=== PATIENT | female | born 1995 | race Caucasian/White ===

== ENCOUNTER 2020-09-06 20:46 | Observation (INO) ==
[2020-09-06] MEDS ORDERED: MoRPHine SULFATE 4 MG/ML 1 ML CARP\\VIAL IV STA (21:23)
[2020-09-06] MEDS ORDERED: ONDANSETRON INJ 2 MG/ML 2 ML VIAL IV STA (21:23)
[2020-09-06] MEDS ORDERED: SODIUM CHLORIDE 0.9% 1000ML 1,000 ML IV ONE (21:23)
[2020-09-06 22:00] LABS: Basophils # (auto) 0.03 K/uL (0-0.2); Basophils % (auto) 0.2 %; Eosinophils % (auto) 0.8 %; Hematocrit (blood only) 38.1 % (37-47); Hemoglobin 12.4 g/dL (12.0-16.0); Immature Granulocytes # (auto) 0.04 K/uL (0.00-0.02); Immature Granulocytes % (auto) 0.3 %; Lymphocytes # (auto) 2.56 K/uL (1.2-3.4); Lymphocytes % (auto) 20.2 %; Mean Corpuscular Hemoglobin 29.3 pg (25-34); Mean Corpuscular Hgb Conc 32.5 g/dL (32-36); Mean Corpuscular Volume 90.1 fL (80-100); Monocytes # (auto) 0.92 K/uL (0.11-0.59); Monocytes % (auto) 7.3 %; Neutrophils # (auto) 9.03 K/uL (1.4-6.5); Neutrophils % (auto) 71.2 %; Platelet Count 227 K/uL (130-400); Red Blood Count 4.23 M/uL (4.2-5.4); White Blood Count 12.68 K/uL (4.8-10.8)
[2020-09-06 22:01] LABS: Appearance Urine Clear (Clear); Bilirubin Urine Negative (Negative); Blood Urine Negative (Negative); Color Urine Yellow; Glucose Urine UA Negative (Negative); Ketones Urine Negative (Negative); Leukocyte Esterase Urine Negative (Negative); Nitrite Urine Negative (Negative); Protein Urine Negative (Negative); Specific Gravity Urine 1.021 (1.000-1.030); Urobilinogen Urine Negative (Negative); pH Urine 6.5 (4.5-7.5)
[2020-09-06 22:02] LABS: Pregnancy Test, Urine Negative (Negative)
[2020-09-06 22:06] LABS: Albumin Level 3.6 gm/dl (3.4-5.0); BUN Creatinine Ratio 12.4 (10-20); Creatinine Clr Calc Pharmacy 103.3 ml/min; Est GFR (African American) 98.3; Est GFR (Non-African American) 84.8; Potassium 3.5 mmol/L (3.5-5.1)
[2020-09-06 22:09] LABS: Albumin Globulin Ratio 0.9 (0.9-2); Bilirubin,Total 0.6 mg/dl (0.2-1); Total Protein 7.6 gm/dl (6.4-8.2)
[2020-09-06] MEDS ORDERED: IOVERSOL 100ml IV ONE (22:39)
[2020-09-06] MEDS ORDERED: cefOXitin 2,000 MG/60 ML BAG IV STA ×2 (23:00→23:31)
--- NOTE | 2020-09-06 23:44 | Emergency Department Note ---
Impression & Plan Acute appendicitis, Abdominal pain ED Provider Note NAME: SHARRON SANCHEZ AGE: 25 SEX: F : 1995 ARRIVES VIA: Walk-In INFORMANT: Patient, ED PROVIDER(S): Julio Delcid MD Chief Complaint: Abdominal pain HPI: Patient does present with abdominal pain that was more centralized and became migratory to the right lower quadrant. Patient describes it as sharp and nonradiating. It is worse with palpation. Patient states that this began earlier this afternoon. The patient did not take anything for prior and had one episode of nonbloody nonbilious emesis. Patient denies any prior history of abdominal surgeries. The patient has had some loose stools but no evidence of any blood. The patient denies any history of kidney stones and no blood in the urine. The patient denies any fevers, chills, chest pains or shortness of breath. The patient states that she has a roommate who recently had a procedure and they both had recent negative coronavirus test. ROS: See HPI for pertinent positives and negatives. A total of 10 systems were reviewed and otherwise negative. Past medical history: See below Surgical history: See below Social history: See below Physical Exam: GENERAL: Wearing a mask. NAD, non-toxic. EYE EXAM: Normal conjunctiva. PERRL, no anisocoria and EOM's grossly intact w/o pain. NECK: Supple, no nuchal rigidity, no adenopathy, non-tender. No signs of meningismus. LUNGS: Clear to auscultation. Normal chest wall mechanics. HEART: NSR, no MRG. ABDOMEN: Abdomen soft, right lower quadrant pain well localized without peritonitis, negative obturator, positive psoas, normo-active bowel sounds, no masses, no rebound or guarding. BACK: No CVA TTP. SKIN: No rashes and no bruising. UPPER EXTREMITIES: Upper extremities are grossly normal. LOWER EXTREMITIES: Grossly normal, no edema. NEURO EXAM: A&O x3, cranial nerves II-XII grossly intact, normal speech, moves all 4 extremities on command w/o issue. Differential diagnoses: Appendicitis, ovarian cyst, ovarian torsion, ectopic , TOA, PID, infections, diverticulitis, UTI, obstruction, mesenteric ischemia, aortic pathology, inflammatory bowel disease, renal colic, PUD, pancreatitis, biliary pathology, hernia, volvulus, constipation, as well as other pathologies. Course: Patient was seen and evaluated the bedside. Full history physical exam was performed. EKG: None Imaging Studies: Radiology results as stated below per my review in the radiologist's interpretation: CT abdomen pelvis with IV contrast Impression: Acute appendicitis. Cardiac monitoring: An order was placed for continuous cardiac monitoring. The monitor shows a rate of 76 with sinus rhythm. MDM: Patient did present with concern for abdominal pain. Blood work was obtained along with a urinalysis test CT of the abdomen pelvis and the patient was treated symptomatically with IV fluids pain and nausea medication. Patient has a mild white count of 12.6 with a normal H&H platelet count. Kidney function is unremarkable with normal LFTs and lipase. Urinalysis is negative for blood or infection with a negative test. Rapid Covid test is negative. I did speak with the on-call general surgery Brad Hu PA-C and this was staffed with Dr. Doyle of general surgery. Patient was admitted to the general service surgery service and was pending operative treatment tomorrow morning. Patient was ordered Mefoxin. Patient did have improvement in her pain and has had no further vomiting. Patient last ate in Serbian muffin around 6 or 7 PM Past Med/Surg History Medical History No pertinent past medical history Surgical History H/O arthroscopic knee surgery Social History Smoking Status: Never smoker Preferred Language: Serbian Feels Safe at Home: Yes Allergies Allergies Allergy/AdvReac Type Severity Reaction Status Date / Time No Known Allergies Unverified 09/06/20 23:18 Home Meds Home Medications Medication Instructions Recorded Confirmed norgestimate-ethinyl estradiol 1 tab PO DAILY 09/06/20 09/06/20 [Kst-[id number]] sertraline 25 mg PO DAILY 09/06/20 09/06/20 Results & Data (ED) Vital Signs Vital Signs - 24 hr 09/06/20 20:49 09/06/20 22:10 09/06/20 23:00 Temperature 37.0 C Temperature Source Oral Pulse Rate 88 Pulse Rate [Left Finger] 76 Pulse Rhythm Regular Pulse Strength Normal Respiratory Rate 20 18 Respiratory Effort / Characteristics Non-Labored Spontaneous Respiratory Depth Normal Blood Pressure 148/97 H Blood Pressure [Right Arm] 140/96 Blood Pressure Mean 114 Blood Pressure Mean [Right Arm] 110 Blood Pressure Position Sitting Pulse Oximetry 98 98 98 Oxygen Delivery Method Room Air Room Air Sepsis Recent Fever Within 48 Hours No Sepsis New/Unexplained Change in Mental Status N/A Sepsis Action Taken by Nursing No Action Required Home Medications Current Medication List: was personally reviewed by me Laboratory Data Attestation: I reviewed the patient's lab results. Result diagrams: 09/06/20 21:37 09/06/20 21:37 Lab Results 09/06/20 09/06/20 09/06/20 Range/Units 21:37 21:37 21:37 WBC 12.68 H (4.8-10.8) K/uL RBC 4.23 (4.2-5.4) M/uL Hgb 12.4 (12.0-16.0) g/dL Hct 38.1 (37-47) % MCV 90.1 (80-100) fL MCH 29.3 (25-34) pg MCHC 32.5 (32-36) g/dL Plt Count 227 (130-400) K/uL Immature Gran % (Auto) 0.3 % Neut % (Auto) 71.2 % Lymph % (Auto) 20.2 % [place] % (Auto) 7.3 % Eos % (Auto) 0.8 % Baso % (Auto) 0.2 % Neut # (Auto) 9.03 H (1.4-6.5) K/uL Lymph # (Auto) 2.56 (1.2-3.4) K/uL [place] # (Auto) 0.92 H (0.11-0.59) K/uL Eos # (Auto) 0.10 (0-0.5) K/uL Baso # (Auto) 0.03 (0-0.2) K/uL Immature Gran # (Auto) 0.04 H (0.00-0.02) K/uL Sodium 141 (136-145) mmol/L Potassium 3.5 (3.5-5.1) mmol/L Chloride 108 H (98-107) mmol/L Carbon Dioxide 27 (21-32) mmol/L Anion Gap 6.0 (3-11) BUN 12 (7-18) mg/dl Creatinine 0.93 (0.6-1.2) mg/dl Est Cr Clr Drug Dosing 103.3 ml/min Est GFR ( Amer) 98.3 Est GFR (Non-Af Amer) 84.8 BUN/Creatinine Ratio 12.4 (10-20) Glucose 95 (70-99) mg/dl Calcium 9.0 (8.5-10.1) mg/dl Total Bilirubin 0.6 (0.2-1) mg/dl AST 12 L (15-37) U/L ALT 15 (12-78) U/L Alkaline Phosphatase 49 (45-117) U/L Total Protein 7.6 (6.4-8.2) gm/dl Albumin 3.6 (3.4-5.0) gm/dl Globulin 4.0 (2.5-4.0) gm/dl Albumin/Globulin Ratio 0.9 (0.9-2) Lipase 57 L (73-393) U/L Urine Color Yellow Urine Appearance Clear (Clear) Urine pH 6.5 (4.5-7.5) Ur Specific [place] 1.021 (1.000-1.030) Urine Protein Negative (Negative) Urine Glucose (UA) Negative (Negative) Urine Ketones Negative (Negative) Urine Blood Negative (Negative) Urine Nitrite Negative (Negative) Urine Bilirubin Negative (Negative) Urine Urobilinogen Negative (Negative) Ur Leukocyte Esterase Negative (Negative) Urine Test (Negative) 09/06/20 Range/Units 21:37 WBC (4.8-10.8) K/uL RBC (4.2-5.4) M/uL Hgb (12.0-16.0) g/dL Hct (37-47) % MCV (80-100) fL MCH (25-34) pg MCHC (32-36) g/dL Plt Count (130-400) K/uL Immature Gran % (Auto) % Neut % (Auto) % Lymph % (Auto) % [place] % (Auto) % Eos % (Auto) % Baso % (Auto) % Neut # (Auto) (1.4-6.5) K/uL Lymph # (Auto) (1.2-3.4) K/uL [place] # (Auto) (0.11-0.59) K/uL Eos # (Auto) (0-0.5) K/uL Baso # (Auto) (0-0.2) K/uL Immature Gran # (Auto) (0.00-0.02) K/uL Sodium (136-145) mmol/L Potassium (3.5-5.1) mmol/L Chloride (98-107) mmol/L Carbon Dioxide (21-32) mmol/L Anion Gap (3-11) BUN (7-18) mg/dl Creatinine (0.6-1.2) mg/dl Est Cr Clr Drug Dosing ml/min Est GFR ( Amer) Est GFR (Non-Af Amer) BUN/Creatinine Ratio (10-20) Glucose (70-99) mg/dl Calcium (8.5-10.1) mg/dl Total Bilirubin (0.2-1) mg/dl AST (15-37) U/L ALT (12-78) U/L Alkaline Phosphatase (45-117) U/L Total Protein (6.4-8.2) gm/dl Albumin (3.4-5.0) gm/dl Globulin (2.5-4.0) gm/dl Albumin/Globulin Ratio (0.9-2) Lipase (73-393) U/L Urine Color Urine Appearance (Clear) Urine pH (4.5-7.5) Ur Specific [place] (1.000-1.030) Urine Protein (Negative) Urine Glucose (UA) (Negative) Urine Ketones (Negative) Urine Blood (Negative) Urine Nitrite (Negative) Urine Bilirubin (Negative) Urine Urobilinogen (Negative) Ur Leukocyte Esterase (Negative) Urine Test Negative (Negative) Administered Medications Discontinued Medications Sodium Chloride (Nss 1000ml) 1,000 mls @ 999 mls/hr IV .Q1H1M ONE Stop: 09/06/20 22:23 Last Admin: 09/06/20 21:41 Dose: 999 mls/hr Documented by: [id number] Cefoxitin Sodium (Mefoxin) 2,000 mg in 60 mls @ 100 mls/hr IV NOW STA Stop: 09/06/20 23:35 Last Admin: 09/06/20 23:39 Dose: 100 mls/hr Documented by: [id number] Ioversol (Ioversol 100ml) 100 ml IV ONCE ONE Stop: 09/06/20 22:40 Last Admin: 09/06/20 22:40 Dose: 89 ml Documented by: [id number] Morphine Sulfate (Morphine Sulfate 4 Mg/Ml 1 Ml Carp\Vial) 4 mg IV NOW STA Stop: 09/06/20 21:24 Last Admin: 09/06/20 21:41 Dose: 4 mg Documented by: [id number] Ondansetron HCl (Ondansetron Inj 2 Mg/Ml 2 Ml Vial) 4 mg IV NOW STA Stop: 09/06/20 21:24 Last Admin: 09/06/20 21:41 Dose: 4 mg Documented by: [id number] Discharge Plan Visit Data Chief Complaint: Abdominal Pain Stated Complaint: flank pain, nausea, vomit ED Provider: Julio Delcid Discharge Problem: Acute appendicitis, Abdominal pain Forms Stand Alone Forms: [facility] Prescriptions Prescriptions: No Action sertraline 25 mg tablet 25 mg PO DAILY RF: 0 norgestimate-ethinyl estradiol [[id number]-[id number]] 0.18/0.215/0.25 mg-25 mcg tablet 1 tab PO DAILY RF: 0 Discharge Problem: Acute appendicitis Qualifiers: Acute appendicitis type: with localized peritonitis Appendicitis gangrene presence: without gangrene Appendicitis perforation presence: without perforation Appendicitis abscess presence: without abscess Qualified Code(s): K35.30 - Acute appendicitis with localized peritonitis, without perforation or gangrene Abdominal pain Qualifiers: Abdominal location: right lower quadrant Qualified Code(s): R10.31 - Right lower quadrant pain
--- NOTE | 2020-09-06 23:49 | History & Physical Report ---
Date of Service September 06, 2020 Assessment & Plan (1) Acute appendicitis: -admit to hospital -plan on appendectomy in the morning; -abx. (mefoxin) have been given in the ED--will continue -provide analgesics and anti-emetics -keep npo -hydrate with IVF -COVID-19 test is pending -consent for surgery obtained; procedure discussed with pt. History of Present Illness Chief Complaint: Abdominal Pain Primary Care Provider: Richard Rivera MD 25 year old developed periumbilical pain that shifted to RLQ earlier this evening. The pain is non-radiating and worse with movement. Improvement noted with lying still as well as morphine that was given in the ED. She denies fever, but had N/V. Her most recent meal was about 1800 today. In the ED, WBC was 12K and CT scan showed acute appendicitis. She was afebrile. Urine test was (-). She had a COVID test 1 week ago that was (-). She was in no distress at the time of my exam and pain was well controlled. Allergies Allergy/AdvReac Type Severity Reaction Status Date / Time No Known Allergies Unverified 09/06/20 23:18 Home Medications Medication Instructions Recorded Confirmed Type norgestimate-ethinyl estradiol 1 tab PO DAILY 09/06/20 09/06/20 History [Oil-Bn-Jbemdt] sertraline 25 mg PO DAILY 09/06/20 09/06/20 History Past Med/Surg History Medical History No pertinent past medical history Surgical History H/O arthroscopic knee surgery Social History Smoking Status: Never smoker Preferred Language: Occitan Feels Safe at Home: Yes Review of Systems Constitutional: no fever and no sweats Eyes: no diplopia Ear, Nose, Mouth, Throat: no ear pain Respiratory: no cough and no dyspnea Cardiovascular: no chest pain Gastrointestinal: + abdominal pain, + nausea and + vomiting Genitourinary: no dysuria Musculoskeletal: no back pain Integumentary: no rash Neurologic: no localized weakness Physical Exam Constitutional: well developed and well nourished; no acute distress Eyes: no conjunctival abnormality ENMT: Ears: no hearing impairment Neck: trachea midline, no thyromegaly Respiratory: normal respiratory effort, lungs clear to auscultation Cardiovascular: Rate/Rhythm: regular rate and regular rhythm Gastrointestinal (Abdomen): soft with (+) BS, pain in RLQ with palpation at McBurney's point; Rovsing sign (+), minimal rebound tenderness Musculoskeletal: no calf pain Skin: no rashes, warm and dry Neurologic: moves all extremities Results & Data Results & Data ([facility]) Vital Signs (Past 12 Hours) Vital Signs Temp Pulse Pulse Resp BP BP Pulse Ox 09/06/20 22:10 76 18 140/96 98 09/06/20 20:49 37.0 C 88 20 148/97 H 98 Code Status & VTE Plan VTE Prophylaxis Plan VTE Prophylaxis will be ordered: Yes PG Care Time/CCT Total # of Minutes Spent Total Time Spent with Patient: Total time spent is greater than 50% in coordination of care (as documented) at patient's floor/unit and/or counseling patient: Coding Level of Care Code 25441 OBS Care - Level 3 Diagnoses Acute appendicitis K35.80
[2020-09-07] MEDS ORDERED: MoRPHine SULFATE 2 MG/ML CARP IV PRN (01:56)
[2020-09-07] MEDS ORDERED: LACTATED RINGER'S 1,000 ML IV SCH ×2 (01:56→10:20)
[2020-09-07] MEDS ORDERED: ONDANSETRON INJ 2 MG/ML 2 ML VIAL IV PRN ×2 (01:56→08:12)
[2020-09-07] MEDS ORDERED: ACETAMINOPHEN 1,000 MG/100 ML VIAL IV PRN (01:56)
[2020-09-07] MEDS: cefOXitin 2,000 MG in DEXTROSE 5% 50 ML IV SCH ×2 (05:46→12:08)
[2020-09-07] MEDS ORDERED: MIDAZOLAM HCL 1 MG/ML 2ML VIAL ONE (07:25)
[2020-09-07] MEDS ORDERED: fentaNYL citrate 100 MCG/2 ML VIAL ONE (07:25)
--- NOTE | 2020-09-07 07:36 | History & Physical Bridge Note ---
Date of Service September 07, 2020 History & Physical Bridge Note I have examined the patient, reviewed the History & Physical and in the interval since the performance of the History & Physical I have noted the following changes of clinical significance: no changes noted as above. discussed findings options. discussed risks ( bleeding/infection/abcess/injury to nearby structures such as bowel/bladder/ureter etc... dvt/pe/mi/cva etc....discussed options. questions answered. will proceed with laparoscopic appendectomy/possible open.
--- NOTE | 2020-09-07 07:37 | CT Scan Report ---
ABDOMEN AND PELVIS CT WITH IV CONTRAST CT DOSE: 899.06 mGycm HISTORY: Acute right lower quadrant abdominal pain pain RLQ TECHNIQUE: Multiaxial CT images of the abdomen and pelvis were performed following the IV administrat ion of 89 cc of Optiray 320, A dose lowering technique was utilized adhering to the principles of [place] JUAN CARLOS. COMPARISON STUDY: None. FINDINGS: Mild subsegmental left lung base atelectasis. There is no pneumatosis or pneumoperitoneum. Imaged inf erior cardiac chambers are unremarkable. The spleen, pancreas, adrenal glands and gallbladder are unr emarkable. Liver is within normal limits. There is patency of the hepatic and portal veins. Kidneys and ureters are unremarkable. Mild urinary bladder wall thickening with partial distention. U terus and ovaries are unremarkable. Aorta and IVC are unremarkable. No adenopathy. Mild fecal retention. No bowel obstruction. Limited evaluation of the appendix without the use of ora l contrast. Nondilated fluid-filled loops of small bowel are noted within the central abdomen and pel vis with a few scattered air-fluid levels. There is a fluid-filled structure measuring 10 mm within t he abdominal right lower quadrant which demonstrates mild wall thickening and surrounding inflammator y stranding. This is suggestive of an inflamed appendix. No perforation or drainable fluid collection . Soft tissues are unremarkable. The bones appear intact. Transitional lumbosacral anatomy. IMPRESSION: 1. Limited exam without the use of enteric contrast. There is a tubular fluid-filled structure measur ing up to 10 mm within the abdominal right lower quadrant suggestive of an inflamed appendix. Trace a djacent inflammatory stranding is noted without evidence of perforation or drainable fluid collection . 2. No bowel obstruction or pneumoperitoneum. ACT 112: Negative or not required by law. The above report was generated using voice recognition software. It may contain grammatical, syntax o r spelling errors. Electronically signed by: Jhonathan Doss M.D. 09/07/2020 7:36 AM
[2020-09-07] MEDS ORDERED: INFLUENZA VIRUS QUAD VACCINE 0.5 ML SYR IM ONE (08:00)
[2020-09-07] MEDS ORDERED: INFLUENZA ADMINISTRATION CHARGE ONE (08:00)
--- NOTE | 2020-09-07 08:06 | Anesthesiology Consultation ---
Date of Service September 07, 2020 Assessment & Plan (1) Encounter for pre-operative examination: Chart Review Chart Review: Acceptable Risk for Surgery History Surgery Operation Date: 09/07/20 07:05 Proposed Procedures p Laparoscopic Appendectomy - Julian Doyle, Height/Weight Height: 5 ft 7 in Weight: 85.7 kg Allergies Allergy/AdvReac Type Severity Reaction Status Date / Time No Known Allergies Unverified 09/06/20 23:18 Medications Home Medications Medication Instructions Recorded Confirmed Last Taken norgestimate-ethinyl estradiol 1 tab PO DAILY 09/06/20 09/06/20 09/06/20 [Yri-Ii-Sykezg] sertraline 25 mg PO DAILY 09/06/20 09/06/20 09/06/20 Active Medications Generic Name Dose Route Start Last Admin Trade Name Marckq PRN Reason Stop Dose Admin Lactated Ringer's 1,000 mls @ 100 mls/hr 09/07/20 01:56 09/07/20 02:28 Lr IV 10/07/20 01:55 100 mls/hr .Q10H JOSELIN Administration Cefoxitin Sodium 2,000 mg/ 60 mls @ 100 mls/hr 09/07/20 06:00 09/07/20 06:22 Dextrose IV 09/17/20 05:59 Infused Q6H JOSELIN Infusion NPO Date Last Intake of Fluids: 09/06/20 Time Last Intake of Fluids: 19:00 Date Last Intake of Solids: 09/06/20 Time Last Intake of Solids: 19:00 Past Medical History Medical History No pertinent past medical history Past Surgical History Surgical History H/O arthroscopic knee surgery Social History Smoking Status: Never smoker Do You Dip or Chew Tobacco: No Hx Alcohol Use: Yes Alcohol type: wine alcohol intake frequency: holidays/special occasions only Hx Substance Use: No Physical Exam Vital Signs Last Vital Signs Temp 36.6 C 09/07/20 07:55 Pulse 72 09/07/20 07:55 Resp 16 09/07/20 07:55 BP 119/69 09/07/20 07:55 Pulse Ox 97 09/07/20 07:55 Testing Laboratory Results 09/06/20 21:37 09/06/20 21:37 Urine Color Yellow 09/06/20 21:37 Urine Appearance Clear (Clear) 09/06/20 21:37 Urine pH 6.5 (4.5-7.5) 09/06/20 21:37 Ur Specific [place] 1.021 (1.000-1.030) 09/06/20 21:37 Urine Protein Negative (Negative) 09/06/20 21:37 Urine Glucose (UA) Negative (Negative) 09/06/20 21:37 Urine Ketones Negative (Negative) 09/06/20 21:37 Urine Nitrite Negative (Negative) 09/06/20 21:37 Ur Leukocyte Esterase Negative (Negative) 09/06/20 21:37 Urine Test Negative (Negative) 09/06/20 21:37 09/06/20 21:37 Urine Test Negative
[2020-09-07] MEDS ORDERED: EPINEPHrine INJ 1 MG/ML AMP ONE (08:09)
[2020-09-07] MEDS ORDERED: BUPIVACAINE 0.5 % 5 MG/1 ML MPF 30ML VIAL ONE (08:10)
[2020-09-07] MEDS ORDERED: KETOROLAC 30 MG/ML VIAL IV PRN (08:12)
[2020-09-07] MEDS ORDERED: PROMETHAZINE HCL 6.25 MG in SODIUM CHLORIDE 0.9% 50 ML IV PRN (08:12)
[2020-09-07] MEDS ORDERED: ATROPINE SULFATE 0.1 MG/ML 10ML SYR IV PRN (08:12)
[2020-09-07] MEDS ORDERED: GLYCOPYRROLATE 0.2 MG/ML VIAL ONE ×2 (08:51→08:54)
[2020-09-07] MEDS ORDERED: ROCURONIUM BROMIDE 10 MG/ML 5 ML VIAL IV ONE (08:51)
[2020-09-07] MEDS ORDERED: ONDANSETRON INJ 2 MG/ML 2 ML VIAL ONE (08:51)
[2020-09-07] MEDS ORDERED: PROPOFOL IV EMULSION 10 MG/ML 20 ML VIAL IV ONE (08:51)
[2020-09-07] MEDS ORDERED: LIDOCAINE HCL 2% 2 ML VIAL/AMP(20MG/ML) INFIL ONE (08:51)
[2020-09-07] MEDS ORDERED: NEOSTIGMINE METHYLSULFATE 5 MG/5 ML SYR ONE (08:51)
[2020-09-07] MEDS ORDERED: DEXAMETHASONE SOD INJ 4 MG/ML VIAL ONE (08:51)
--- NOTE | 2020-09-07 08:59 | Operative Report ---
PG Post Operative Report Pre & Post Diagnosis Operation Date: 09/07/20 07:05 Pre-Op Diagnosis: Appendicitis Post-Op Diagnosis: Appendicitis I identified the patient and participated in the time-out.: Yes Procedure Operation Date: 09/07/20 07:05 Actual Procedures p Laparoscopic Appendectomy - Julian Doyle DO Surgeon Julian Doyle DO Materials Associate norma Chávez Estimated Blood Loss 5 Findings Consistent with Post-Op Diagnosis Specimens appendix Description of Procedure After informed consent was obtained the patient was taken to the operating room and placed in supine position. After successful intubation a Schmid catheter was placed and the left arm was tucked. I began by making a periumbilical incision with an 11 blade scalpel and carried this down through the soft tissue using electrocautery. The anterior rectus fascia was opened using electrocautery and 2 #0 Vicryl stay sutures were placed. The peritoneum was elevated using hemostats and incised under direct vision using a Metzenbaum scissor. A finger sweep was performed. A 12 mm Cross trocar was placed and the abdomen was insufflated to 18 mmHg. A laparoscope was inserted and the abdomen was examined in 360. A suprapubic 5 mm port and a left lower quadrant 12 mm port were placed under direct vision. The patient was air planed to the left as well as placed in a slight Trendelenburg position. We began by looking in the right lower quadrant. We were able to readily identify the appendix and it was grossly inflamed. It had not perforated. There is a small amount of purulent fluid in the right lower quadrant and the pelvis. We immediately irrigated and suctioned this out. I was able to use primarily blunt dissection to pull the appendix away from the right lower quadrant sidewall. I was then able to use a ABDOUL brown cartridge stapler to transect both the mesentery of the appendix as well as the appendix itself at its base with the cecum. It was then placed into an Endo Catch bag and removed from the camera port site. We thoroughly irrigated the right lower quadrant as well as the pelvis. There was adequate hemostasis. I ran the small bowel backwards from the terminal ileum for about 6 feet all of which was normal. All the peritoneal surfaces were normal. Small/ large bowel, liver, stomach etc. all appeared grossly normal. We did a final irrigation and then removed all the trochars and desufflated the abdomen. The fascia of the camera port as well as the left lower quadrant were closed using 0 Vicryl in uaobzr-oh-eugaf fashion. Wounds were all irrigated and closed using 4-0 Monocryl. Marcaine was injected around them for postoperative analgesia and skin glue used as a dressing. The patient was awakened extubated and transferred to recovery in stable condition. My physician's assistant district attorney was present through the entire case. She assisted with prepping the patient and helped with exposure for port placement, helped run the camera and helped with fascial/wound closure at the end of the procedure as well as dressing placement. I attest to the content of the Intraoperative Record and any orders documented therein. Any exceptions are noted below. I attest to the content of the Intraoperative Record and any orders documented therein. Any exceptions are noted below.
[2020-09-07] MEDS ORDERED: SERTRALINE HCL 50 MG TABLET PO SCH (09:00)
[2020-09-07] MEDS: fentaNYL citrate 100 MCG/2 ML VIAL IV PRN ×2 (09:20→09:40)
[2020-09-07] MEDS ORDERED: LARYING-O-JET KIT (LTA) ONE (09:25)
--- NOTE | 2020-09-07 09:48 | Anesthesiology Progress Note ---
Date of Service September 07, 2020 Anesthesia Post Procedure Vital Signs Vital Signs: Temp Pulse Pulse Pulse Resp BP BP 09/07/20 09:40 66 16 09/07/20 09:30 55 L 16 09/07/20 09:20 63 14 09/07/20 09:14 36.8 C 71 16 09/07/20 08:15 36.8 C 78 18 121/79 09/07/20 07:55 36.6 C 72 16 119/69 09/07/20 01:50 36.9 C 69 12 09/07/20 01:44 80 16 118/84 09/07/20 00:00 96 H 18 09/06/20 23:00 09/06/20 22:10 76 18 09/06/20 20:49 37.0 C 88 20 148/97 H BP Pulse Ox Pulse Ox 09/07/20 09:40 134/76 100 09/07/20 09:30 128/80 100 09/07/20 09:20 128/80 100 09/07/20 09:14 132/76 100 09/07/20 08:15 99 09/07/20 07:55 97 09/07/20 01:50 135/91 98 98 09/07/20 01:44 09/07/20 00:00 132/90 100 09/06/20 23:00 98 09/06/20 22:10 140/96 98 09/06/20 20:49 98 Pain Intensity Flank: Pain Intensity: 2 Abdomen: Pain Intensity: 5
[2020-09-07] MEDS ORDERED: oxyCODONE HCL IR 5 MG TAB (IMMEDIATE RELEASE) PO PRN ×2 (10:20)
[2020-09-07] MEDS: ORAL CONTRACEPTIVE~ORDER AWAITING ACTION SCH ×2 (10:34→15:15)
--- NOTE | 2020-09-07 13:25 | Discharge Summary ---
Date of Service September 07, 2020 Admission HPI Per Admitting Provider 25 year old developed periumbilical pain that shifted to RLQ earlier this evening. The pain is non-radiating and worse with movement. Improvement noted with lying still as well as morphine that was given in the ED. She denies fever, but had N/V. Her most recent meal was about 1800 today. In the ED, WBC was 12K and CT scan showed acute appendicitis. She was afebrile. Urine test was (-). She had a COVID test 1 week ago that was (-). She was in no distress at the time of my exam and pain was well controlled. Principal Diagnosis acute appendicitis Discharge Exam awake/alert Respiratory normal respiratory effort Gastrointestinal (Abdomen) Inspection/Auscultation: + abdominal surgical incision (c/d/i with dermabond overtop); abdomen not distended Percussion/Palpation: + abdomen tender (mild ttp yashira-incisionally) and abdomen soft Discharge Data Allergies Allergy/AdvReac Type Severity Reaction Status Date / Time No Known Allergies Unverified 09/06/20 23:18 Consultations 09/06/20 23:00 ED Decision to Admit Stat Procedures Performed Operation Date: 09/07/20 07:05 Actual Procedures p Laparoscopic Appendectomy - Julian Doyle, Ordered Studies 09/06/20 21:23 CT abd pelvis IV con only Urgent Hospital Course (1) Acute appendicitis: This is a 25yF who presented to the [facility] ED on 09/06/20 with abdominal pain. Workup in the ED showed a WBC of [address] a/p concerning for acute appendicitis. The patient was tender to palpation in the RLQ. The patient was made NPO with IVF and was started on pre-op abx. On the morning of 09/07 the patient went to the OR with Dr. Doyle for a laparoscopic appendectomy. The patient tolerated the procedure well, see op note for full details. Post operatively the patient's diet was advanced, pain managed on prn meds, and incisions clean/dry/intact. On the afternoon of POD#0 the patient was deemed stable for discharge to home. She was given instructions to follow up in clinic within 2 weeks. Total Time Total Time Spent Total Time Spent (In Minutes): 10 Discharge Plan Discharge Items Patient Disposition: Home - Self-Care Reason For Visit: APPY Discharge Diagnosis: laparoscopic appendectomy Activity: Per Instructions section Lifting: No more than 10 pounds Bathing Comment: may shower starting 09/08/20; no soaking in tubs/pools Exercise/Sports: Wait until after follow-up appointment Driving/Machine Use: do not resume driving while taking narcotics for pain Non-emergency contact: Surgeon Call non-emergency contact if: you have any medication questions, your symptoms worsen, your pain is not controlled, your pain is worsening, your pain is unusual for you, you have a fever, your temperature is above 101.5, your wound has increased redness, your wound has increased drainage and your wound pain has increased Follow-up/Referrals: Julian Doyle, [Surgeon] - 09/21/20 9:30 am (Please call to schedule follow up in clinic within 2 weeks) Richard Rivera MD [Primary Care Provider] - Diet: Regular Addtl Attending Provider Instructions: Pending Studies at Discharge: Yes Studies:: surgical pathology Stand-Alone Forms: Community Health, Opioid Pain Management, Smoking Cessation Medications and DC Order Prescriptions: New hydrocodone-acetaminophen [[place]] 5-325 mg tablet 1 - 2 tab PO .q4-6h PRN (Reason: pain, for initial therapy, max 6 tabs per day) Qty: 15 RF: 0 Continued sertraline 25 mg tablet 25 mg PO DAILY RF: 0 norgestimate-ethinyl estradiol [Kzd-Pw-Ucdmbt] 0.18/0.215/0.25 mg-25 mcg tablet 1 tab PO DAILY RF: 0 Discharge Orders: Discharge Order (Routine); Ordered 09/07/20 Ordered By: Eleni Webb/Other Patient Handouts: Acetaminophen Hydrocodone tablets or capsules Admission Data Admit Date/Time: 09/06/20 23:43 Attending Provider: Julian Doyle Admit Provider: Julian Doyle Primary Care Provider: Richard Rivera Other Providers: Julian Doyle Other Interventions: Discharge Summary Assessment (RN) Last Done: 09/07/20 13:43 Coding Level of Care Code D/C Day Management <30 mins Diagnoses Acute appendicitis K35.30 Acute appendicitis type: with localized peritonitis Appendicitis abscess presence: without abscess Appendicitis gangrene presence: without gangrene Appendicitis perforation presence: without perforation
== END 2020-09-07 17:41 | disposition home or self-care (01) ==
LOC: ED 20:46 → 3N 20:46